=== PATIENT | female | born 1965 | race American Indian/Alaskan Native ===

== ENCOUNTER 2017-03-17 19:45 | Emergency (ER) | payer OTHER ==
[2017-03-17 22:08] LABS: Basophils % (Auto) 0.3 % (0.0-1.8); Eosinophils % (Auto) 0.5 % (0.0-4.3); Hematocrit 40.2 % (30.3-42.9); Hemoglobin 13.4 gm/dl (10.1-14.3); Mean Corpuscular HGB Conc 33 % (30-34); Mean Corpuscular Hemoglobin 31 pg (28-32); Mean Corpuscular Volume 91 fl (79-97); Platelet Count 172 K/mm3 (140-440); Red Cell Distribution Width 13.8 % (13.2-15.2); White Blood Count 9.3 K/mm3 (4.5-11.0)
[2017-03-17 22:15] LABS: Anion Gap 19 mmol/L; BUN/Creatinine Ratio 13.75; Blood Urea Nitrogen 11 mg/dL (7-17); Calcium 9.8 mg/dL (8.4-10.2); Carbon Dioxide 23 mmol/L (22-30); Chloride 101.9 mmol/L (98-107); Glucose 94 mg/dL (65-100); Potassium 3.9 mmol/L (3.6-5.0); Sodium 140 mmol/L (137-145)
[2017-03-18] MEDS ORDERED: TYLENOL PO ONE (01:19)
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
[2017-03-18] MEDS ORDERED: ZOFRAN IV ONE (07:34)
[2017-03-18] MEDS ORDERED: MORPHINE IV ONE (07:34)
[2017-03-18] MEDS ORDERED: NACL 0.9% 1000 ML 1,000 ML IV ONE (07:34)
[2017-03-18] MEDS ORDERED: ZOFRAN ODT ONE (08:18)
[2017-03-18] MEDS ORDERED: PERCOCET 5/325 PO ONE (08:19)
--- NOTE | 2017-03-18 08:20 | XRay Report ---
LEFT HIP, 2 views: History: Left hip pain. The bony architecture is intact without evidence of fracture or dislocation. No significant soft tissue abnormality is seen. IMPRESSION: Normal left hip.
--- NOTE | 2017-03-18 08:21 | XRay Report ---
RIGHT HAND, 2 views: History: Right hand pain. The bony architecture is intact. Bony alignment is normal. No soft tissue abnormalities are seen. The joint spaces appear preserved. IMPRESSION: Right hand within normal limits.
--- NOTE | 2017-03-18 08:43 | XRay Report ---
RIGHT KNEE, 2 views: History: Right knee pain. The bony architecture is intact without evidence of fracture or dislocation. No significant soft tissue abnormality is seen. IMPRESSION: Normal right knee.
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
[2017-03-18] MEDS ORDERED: ZOFRAN ODT PO ONE (08:56)
[2017-03-18] MEDS ORDERED: ZOFRAN PO ONE (09:00)
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
[2017-03-18 14:05] VITALS: BP 146/98
== END 2017-03-18 11:05 | disposition home or self-care (01) ==
LOC: ED 19:45
DX: S13.9XXA Sprain of joints and ligaments of unspecified parts of neck, initial encounter (principal); S50.12XA Contusion of left forearm, initial encounter; S50.11XA Contusion of right forearm, initial encounter; V49.49XA Driver injured in collision with other motor vehicles in traffic accident, initial encounter; Y92.488 Other paved roadways as the place of occurrence of the external cause; Y93.89 Activity, other specified; Y99.8 Other external cause status
CPT/HCPCS: 36415; 72125; 74176; 80048; 84484; 85025; 93005; 93010; J2270; J2405; J7030; Q0162